=== PATIENT | male | born 1995 | race Caucasian/White ===

== ENCOUNTER 2018-02-08 11:58 | Emergency (ER) | payer OTHER ==
[~2018-02-08] VITALS: Ht 175.3 cm; Wt 64.4 kg
[2018-02-08 12:05] VITALS: Ht 175.3 cm; Wt 64.4 kg
[2018-02-08 12:45] LABS: CALCIUM 10.1 mg/dL (8.5-10.1); CARBON DIOXIDE 26.7 mmol/L (21-32); CHLORIDE SERUM 100 mmol/L (98-107); CREATININE SERUM 0.9 mg/dL (0.7-1.3); GFR1 > 60 mL/min; GLUCOSE SERUM 104 mg/dL (74-106); POTASSIUM SERUM 3.4 mmol/L (3.5-5.1); SODIUM SERUM 140 mmol/L (136-145)
[2018-02-08 12:49] LABS: ALBUMIN 4.9 g/dL (3.4-5.0); ALKALINE PHOSPHATASE 64 U/L (46-116); ALT/SGPT 18 U/L (16-63); AST/SGOT 13 U/L (15-37); BILIRUBIN TOTAL 3.55 mg/dL (0.20-1.00); CHOLESTEROL 139 mg/dL (<200); HDL CHOLESTEROL 46 mg/dL (40-60); LIPASE 54 IU/L (73-393); TOTAL PROTEIN, SERUM 8.2 g/dL (6.4-8.2); TRIGLYCERIDES 43 mg/dL (<150)
[2018-02-08 13:01] LABS: FREE T4 1.61 ng/dL (0.76-1.46); FREE THYROXINE INDEX 3.4 ug/dL (1.4-4.5); T4(THYROXINE) 9.4 ug/dL (4.7-13.3)
[2018-02-08 13:08] LABS: BASOPHIL % 0.2 % (0-2); PLATELET COUNT 219 x10^3mcL (130-400); RED CELL DISTRIBUTION WIDTH 12.7 % (11.5-14.5)
[2018-02-08 13:10] LABS: UA SPECIFIC GRAVITY 1.025 (1.005-1.035); microscopic required? YES; urine erythrocyte NEGATIVE (NEGATIVE)
[2018-02-08 13:27] LABS: AMPHETAMINE QUAL UR NONE DETECTED (See below)
[2018-02-08 14:07] VITALS: BP 110/66
[2018-02-08 14:20] LABS: T3 TOTAL 1.3 ng/mL
== END 2018-02-08 14:07 | disposition home or self-care (01) ==
LOC: EDBD 11:58 → ED 11:58
PROVIDERS: Specialist
DX: F12.10 Cannabis abuse, uncomplicated (principal); Z02.83 Encounter for blood-alcohol and blood-drug test
CPT/HCPCS: 36415; 83880; 84439; G0480